=== PATIENT | male | born 1945 | race Caucasian/White ===

== ENCOUNTER → 2016-08-14 | Outpatient (CLI) | payer MEDICARE, OTHER | END | disposition home or self-care (01) | LOC: GMAL 10:50 | PROVIDERS: ATTEND Family Medicine | DX: D51.3 Other dietary vitamin B12 deficiency anemia (principal); E78.4 Other hyperlipidemia; Z12.5 Encounter for screening for malignant neoplasm of prostate; E55.9 Vitamin D deficiency, unspecified | CPT/HCPCS: 82306; 82607; G0103 ==

== ENCOUNTER → 2017-01-17 | Outpatient (CLI) | payer MEDICARE, OTHER ==
--- NOTE | 2017-01-18 09:04 | MRI ---
EXAM DESCRIPTION: Lumbar Spine w/o Contrast CLINICAL HISTORY: 71 years, Male, LOW BACK PAIN , right-sided pain COMPARISON: FINDINGS: Sagittal and axial sequences. Bone marrow signal within normal limits. Conus terminates at L1. L1-2, left lateral protrusion about 8 mm narrows the exit foramen. Possible minimal impression on the exiting left L1 root. At L2-3 diffuse bulging disc asymmetric to the right with facet degenerative change. Impingement on the exit foramen and probably right L2 root as well. Facet degenerative change. At L3-4 narrowing with diffuse bulging disc asymmetric to the left and facet degenerative change. Mild left foraminal narrowing and lateral recess encroachment At L4-5 slight narrowing with diffuse bulge asymmetric to the right. Impingement on the exiting right L4 root. L5-S1 shows tiny focal central and left-sided protrusion without significant stenosis. Mild facet degenerative change. IMPRESSION: 1. Multilevel disc disease as discussed above 2. Bulging disc L2-3 and L4-5 asymmetric to the right with probable impingement on the exiting right nerve roots at this level 3. Left lateral protrusion L1-2 with moderate left foraminal narrowing. Bulging disc osteophyte asymmetric to the left L3-4 with left foraminal narrowing and lateral recess encroachment Electronically signed by: Reg Lau MD 01/18/2017 9:03 AM CDT
== END | disposition home or self-care (01) ==
LOC: MRI 13:02
PROVIDERS: ATTEND Family Medicine
DX: M51.26 Other intervertebral disc displacement, lumbar region (principal)

== ENCOUNTER → 2017-02-19 | Outpatient (CLI) | payer MEDICARE, OTHER | END | disposition home or self-care (01) | LOC: GMAL 10:38 | PROVIDERS: ATTEND Family Medicine | DX: D51.3 Other dietary vitamin B12 deficiency anemia (principal); I10 Essential (primary) hypertension ==

== ENCOUNTER → 2017-08-27 | Outpatient (CLI) | payer MEDICARE, OTHER | LOC: GMAL 11:13 | PROVIDERS: ATTEND Family Medicine | DX: E55.9 Vitamin D deficiency, unspecified (principal); M10.9 Gout, unspecified; Z12.5 Encounter for screening for malignant neoplasm of prostate | CPT/HCPCS: 82306; 84550; G0103 ==

== ENCOUNTER → 2017-12-06 | Outpatient (CLI) | payer MEDICARE, OTHER | LOC: GMAL 10:43 | PROVIDERS: ATTEND Family Medicine | DX: M10.9 Gout, unspecified (principal) ==

== ENCOUNTER → 2018-03-20 | Outpatient (CLI) | payer MEDICARE, OTHER | LOC: GMAE 11:00 | PROVIDERS: ATTEND Family Medicine | DX: M10.9 Gout, unspecified (principal) ==

== ENCOUNTER → 2018-11-26 | Outpatient (CLI) | payer MEDICARE, OTHER | LOC: GMAL 10:54 | PROVIDERS: ATTEND Family Medicine | DX: D51.3 Other dietary vitamin B12 deficiency anemia (principal); E55.9 Vitamin D deficiency, unspecified; I10 Essential (primary) hypertension; E11.9 Type 2 diabetes mellitus without complications; E78.49 Other hyperlipidemia; M10.9 Gout, unspecified; Z12.5 Encounter for screening for malignant neoplasm of prostate | CPT/HCPCS: 82306; 82607; 84550; G0103 ==

== ENCOUNTER 2019-02-08 14:53 | Emergency (ER) | payer MEDICARE, OTHER ==
--- NOTE | 2019-02-08 15:55 | RAD ---
EXAM DESCRIPTION: Thumb,Left CLINICAL HISTORY: 73 years Male, skillsaw to tip of thumb COMPARISON: None. FINDINGS/IMPRESSION: Two views of the left thumb demonstrate soft tissue injury/laceration along the volar tip. No underlying radiopaque retained foreign body. No acute displaced fracture or dislocation. Scattered degenerative changes of the IP, MCP and thumb CMC joints. Electronically signed by: Darren Gutiérrez DO 02/08/2019 3:53 PM [facility]
[2019-02-08] MEDS ORDERED: TETANUS,DIPHTHERIA,PERTUSSIS 1 EA SYG IM ONE (15:56)
[2019-02-08] MEDS ORDERED: SULFA/TRIMETH 800/160 (DS) TAB 1 EA TAB PO ONE (15:56)
--- NOTE | 2019-02-08 15:59 | ED.PDOC ---
History of Present Illness - General Chief Complaint: Laceration Stated Complaint: Laceration L thumb Time Seen by Provider: 02/08/19 15:03 - History of Present Illness Initial Comments: The patient is a 73-year-old male from emergency room after having cut the tip of his leftthumb with a skill saw just immediately prior to arrival. Laceration is three quarters of an inch in length andgoes through the skin does not appear to touch the bone or tendon. It is largely hemostatic. No other injury. Timing/Duration: momentarily Severity: moderate Improving Factors: nothing Worsening Factors: nothing Associated Symptoms: denies symptoms Allergies/Adverse Reactions: Allergies NO KNOWN ALLERGY Allergy (Verified 06/26/12 10:18) Home Medications: Ambulatory Orders Aspirin [Aspir-81] 81 mg PO DAILY 06/26/12 Carvedilol [Coreg] 25 mg PO BID 06/26/12 Doxazosin Mesylate 4 mg PO DAILY 06/26/12 Furosemide Tab 40Mg (ER Disp) [Lasix] 10 mg PO DAILY 06/26/12 Glyburide 10 mg PO BID 06/26/12 Metformin HCl 1,000 mg PO BID 06/26/12 Rosuvastatin Calcium [Crestor] 10 mg PO DAILY 06/26/12 Canagliflozin [Invokana] 100 mg PO DAILY 10/17/15 Enalapril Maleate 10 mg PO BEDTIME 10/17/15 Olmesartan Medoxomil-Hydrochlo [Benicar Hct] 1 tab PO DAILY 10/17/15 Sulfa/Trimeth 800/160 (Ds) Tab [Bactrim DS Tab] 1 ea PO DAILY #3 tab 02/08/19 Review of Systems - Review of Systems Constitutional: States: no symptoms reported EENTM: States: no symptoms reported Respiratory: States: no symptoms reported Cardiology: States: no symptoms reported Gastrointestinal/Abdominal: States: no symptoms reported Genitourinary: States: no symptoms reported Musculoskeletal: States: no symptoms reported Skin: States: see HPI Neurological: States: no symptoms reported Endocrine: States: no symptoms reported All other Systems: No Change from Baseline Past Medical History (General) - Patient Medical History Hx Stroke: No Hx Cardiac Disorders: Yes - Hypercholesterolemia Hx Congestive Heart Failure: No Hx Hypertension: Yes Hx Diabetes: Yes Hx MRSA: No - Vaccination History Hx Tetanus, Diphtheria Vaccination: - 02/08/19 Hx Influenza Vaccination: Yes - 2019 Hx Pneumococcal Vaccination: No - Social History Hx Alcohol Use: Yes - Occasional use Family Medical History - Family History Father Family History: No Known Living Status: Age at (years of age): 89 Cause of : natural causes Physical Exam - Physical Exam General Appearance: Alert, Comfortable, No apparent distress Eye Exam: bilateral normal Ears, Nose, Throat: hearing grossly normal - chronically decreased bilaterally Respiratory: no respiratory distress, no accessory muscle use Cardiovascular/Chest: normal peripheral pulses, no edema Peripheral Pulses: radial,right: 2+, radial,left: 2+ Gastrointestinal/Abdominal: other - obese Rectal Exam: deferred Extremity: normal range of motion, no pedal edema, normal capillary refill, other - tendon functions of the hand appear to be intact. Neurologic: alert, normal mood/affect, oriented x 3 Skin Exam: normal color - laceration as per history of present illness. Comments: Vital Signs - 24 hr 02/08/19 15:00 Temperature 98.3 F Pulse Rate [ 108 H Left Radial] Respiratory 18 Rate Blood Pressure 119/81 [Left Arm] O2 Sat by Pulse 96 Oximetry Progress - Progress Progress: 02/08/19 15:59 the patient is a 73-year-old male presenting with a three-quarter inch laceration to the tip of his left thumb. X-ray fails to show any extension into the bone. After risks and benefits were explained the patient did agree to repair. wound is cleaned with hydrogen peroxide. Xylocaine 3 cc without epinephrine was used as local anesthetic. 3 simple sutures of 4-0 Ethilon were used for reapproximation after cleaning. Blood loss is minimal. He does appear to be grossly neurovascularly intact. No evidence of motor dysfunction. Sutures need come out in approximately 10 days. Keep covered with a Band-Aid and triple antibiotic ointment. He was given a tetanus shot and a dose of Bactrim here. He will be written for 3 more days of Bactrim daily prophylactically. ER warnings were given. adiel meza [id number] Departure - Departure Clinical Impression: Accidental laceration Disposition: Discharge to Home or Self Care Condition: Fair Departure Forms: ED Discharge - Pt. Copy, Patient Portal Self Enrollment Instructions: DI for Laceration Repair, DI for Laceration Repair -- Simple Diet: diabetic diet Activity: increase activity as tolerated Referrals: Arpit Clark III, MD [Primary Care Provider] - 1-2 Weeks Prescriptions: Sulfa/Trimeth 800/160 (Ds) Tab [Bactrim DS Tab] 1 ea PO DAILY #3 tab Home Medications: Ambulatory Orders Aspirin [Aspir-81] 81 mg PO DAILY 06/26/12 Carvedilol [Coreg] 25 mg PO BID 06/26/12 Doxazosin Mesylate 4 mg PO DAILY 06/26/12 Furosemide Tab 40Mg (ER Disp) [Lasix] 10 mg PO DAILY 06/26/12 Glyburide 10 mg PO BID 06/26/12 Metformin HCl 1,000 mg PO BID 06/26/12 Rosuvastatin Calcium [Crestor] 10 mg PO DAILY 06/26/12 Canagliflozin [Invokana] 100 mg PO DAILY 10/17/15 Enalapril Maleate 10 mg PO BEDTIME 10/17/15 Olmesartan Medoxomil-Hydrochlo [Benicar Hct] 1 tab PO DAILY 10/17/15 Sulfa/Trimeth 800/160 (Ds) Tab [Bactrim DS Tab] 1 ea PO DAILY #3 tab 02/08/19 Additional Instructions: the patient is a 73-year-old male presenting with a three-quarter inch laceration to the tip of his left thumb. X-ray fails to show any extension into the bone. wound is cleaned with hydrogen peroxide. Xylocaine 3 cc without epinephrine was used as local anesthetic. 3 simple sutures of 4-0 Ethilon were used for reapproximation after cleaning. Blood loss is minimal. He does appear to be grossly neurovascularly intact. No evidence of motor dysfunction. Sutures need come out in approximately 10 days. Keep covered with a Band-Aid and triple antibiotic ointment. He was given a tetanus shot and a dose of Bactrim here. He will be written for 3 more days of Bactrim daily prophylactically. ER warnings were given.
[2019-02-08 16:28] VITALS: TEMP 98.7; O2SAT 95
[2019-02-08 16:29] VITALS: BP 96/65
[2019-02-08] MEDS ORDERED: NEOMYCIN-BACITRACIN-POLYMYXIN 0.9 GM UD TOP ONE (16:31)
== END 2019-02-08 16:28 | disposition home or self-care (01) ==
LOC: ER 14:53
DX: S61.012A Laceration without foreign body of left thumb without damage to nail, initial encounter (principal); E78.00 Pure hypercholesterolemia, unspecified; E11.9 Type 2 diabetes mellitus without complications; I10 Essential (primary) hypertension; W31.2XXA Contact with powered woodworking and forming machines, initial encounter; Y92.9 Unspecified place or not applicable; Z79.82 Long term (current) use of aspirin; Z79.84 Long term (current) use of oral hypoglycemic drugs; Z79.899 Other long term (current) drug therapy

== ENCOUNTER → 2019-04-03 | Outpatient (CLI) | payer MEDICARE, OTHER ==
--- NOTE | 2019-04-03 09:03 | MRI ---
EXAM DESCRIPTION: Lumbar Spine w/o Contrast CLINICAL HISTORY: 73 years Male, RADICULOPATY COMPARISON: MRI of the lumbar spine dated 01/17/2017. TECHNIQUE: Multiplanar multiecho imaging of the lumbar spine was performed without intravenous contrast administration. FINDINGS: The vertebral body heights are well-maintained with no acute compression deformity. Multilevel intervertebral disc space narrowing is noted. The conus medullaris terminates at T12-L1 intervertebral disc space. The visualized spinal cord demonstrates no signal abnormality. L1-L2: Bilateral facet arthropathy. No canal stenosis. Mild bilateral neural foraminal narrowing. L2-L3: 3 mm diffuse disc bulge and bilateral facet arthropathy with no central canal stenosis. Mild bilateral neural foraminal narrowing is noted. L3-L4: 2 mm diffuse disc bulge, ligamentum flavum hypertrophy and facet arthropathy with no central canal stenosis. Moderate to severe bilateral neural foraminal narrowing is noted secondary to facet arthropathy. L4-L5: No significant central canal stenosis. Moderate bilateral neural foraminal narrowing secondary to facet arthropathy. L5-S1: No significant central canal stenosis. Moderate bilateral neural foraminal narrowing secondary to facet arthropathy. The visualized prevertebral and paravertebral soft tissues appear unremarkable. IMPRESSION: Multilevel degenerative disc disease and facet arthropathy throughout the lumbar spine with changes worse at L3-L4 level as described above. Electronically signed by: Adolfo Winter MD 04/03/2019 9:01 AM [facility]
== END ==
LOC: MRI 08:00
PROVIDERS: ATTEND Family Medicine
DX: M51.16 Intervertebral disc disorders with radiculopathy, lumbar region (principal); M12.88 Other specific arthropathies, not elsewhere classified, other specified site

== ENCOUNTER 2019-11-22 14:27 | Emergency (ER) | payer MEDICARE, OTHER ==
--- NOTE | 2019-11-22 14:37 | ED.PDOC ---
History of Present Illness - General Time Seen by Provider: 11/22/19 14:31 - History of Present Illness Initial Comments: 74 yo male with a PMH DM, HTN comes in with 1 days of not feeling well. complains of elevated glucose over 300. Yesterday patient got Pain radiating between shoulder blades when at a garage sale. the pain lasted a few minutes and went away. denies any injury. no abdominal pain n/v/d. Is dizzy but no syncope. Father had hx of cabg. no chest pain. Today pain radiating down bilateral arms. no pain up jaw. no midline cervical pain. no shortness of breath,or blurry vision. no headache. no focal weakness or numbness. no headaches or changes in visin. Dizziness is worse with standing. no room spinning sensation. no current back pain Allergies/Adverse Reactions: Allergies NO KNOWN ALLERGY Allergy (Verified 11/22/19 14:43) Home Medications: Ambulatory Orders Carvedilol [Coreg] 25 mg PO BID 06/26/12 Doxazosin Mesylate 4 mg PO DAILY 06/26/12 Furosemide Tab 40Mg (ER Disp) [Lasix] 20 mg PO DAILY 06/26/12 Metformin HCl 1,000 mg PO BID 06/26/12 Enalapril Maleate 10 mg PO BID 10/17/15 Allopurinol [Zyloprim] 100 mg PO DAILY 11/22/19 Atorvastatin Calcium 20 mg PO DAILY 11/22/19 Dulaglutide [Trulicity] 1.5 mg SC WKLY 11/22/19 Empagliflozin [Jardiance] 25 mg PO DAILY 11/22/19 Glimepiride 4 mg PO BID 11/22/19 Loratadine 10 mg PO DAILY 11/22/19 Olmesartan Medoxomil-Hydrochlo [Benicar Hct 40-25 mg] 1 tab PO DAILY 11/22/19 Omeprazole 20 mg PO DAILY 11/22/19 SITagliptin [Januvia] 50 mg PO DAILY #21 tab 11/22/19 Review of Systems - Review of Systems Constitutional: Denies: fever, malaise EENTM: Denies: blurred vision, double vision, ear discharge, nose congestion, throat pain, mouth pain Respiratory: Denies: cough, orthopnea, short of breath, stridor Cardiology: Denies: edema, palpitations, syncope Gastrointestinal/Abdominal: Denies: abdominal pain, constipation, diarrhea, nausea Genitourinary: Denies: discharge, dysuria, frequency, hematuria Musculoskeletal: States: back pain. Denies: joint pain, joint swelling, muscle pain Skin: Denies: change in color, dryness, rash Neurological: Denies: headache, numbness, paresthesia, seizure, tingling, tremors, weakness Endocrine: Denies: increased hunger, increased thirst, increased urine, unexplained weight gain, unexplained weight loss Hematologic/Lymphatic: Denies: anemia, blood clots, easy bleeding, easy bruising Past Medical History (General) - Patient Medical History Hx Stroke: No Hx Cardiac Disorders: Yes - Hypercholesterolemia Hx Congestive Heart Failure: No Hx Hypertension: Yes Hx Diabetes: Yes Hx MRSA: No - Vaccination History Hx Tetanus, Diphtheria Vaccination: - 02/08/19 Hx Influenza Vaccination: Yes - 2019 Hx Pneumococcal Vaccination: No - Social History Hx Alcohol Use: Yes - Occasional use Family Medical History - Family History Father Family History: No Known Living Status: Age at (years of age): 89 Cause of : natural causes Physical Exam - Physical Exam General Appearance: Alert, Comfortable, No apparent distress Eye Exam: bilateral normal Ears, Nose, Throat: hearing grossly normal, normal ENT inspection Neck: non-tender, full range of motion, supple, normal inspection, other - no midlines tenderness or step offs. Respiratory: chest non-tender, lungs clear, normal breath sounds, no respiratory distress, no accessory muscle use Cardiovascular/Chest: normal peripheral pulses, regular rate, rhythm, no edema, no gallop, no JVD, no murmur Peripheral Pulses: radial,right: 2+, radial,left: 2+, dorsalis pedis,right: 2+, dorsalis pedis,left: 2+ Gastrointestinal/Abdominal: normal bowel sounds, non tender, soft, no organomegaly, no pulsatile mass Rectal Exam: deferred Back Exam: normal inspection, no CVA tenderness, no vertebral tenderness Extremity: normal range of motion, non-tender, normal inspection, no pedal edema, no calf tenderness, normal capillary refill Neurologic: calender wind up helper II-XII nml as tested, no motor/sensory deficits, alert, normal mood/affect, oriented x 3, other - 5/5 muscle strength angela sym DTR: 2+: Biceps, left, Biceps, right, Triceps, left, Triceps, right, Brachioradialis, left, Brachioradialis, right Skin Exam: normal color, warm/dry Progress - Progress Progress: 11/22/19 patients orthostatics positive. will give 1 L NS Bolus. no evidence of heart failure. Reviewed blood work with patient and . GFR 44. FeNA 1.2%. most likely acute on chronic. CXR shows no acute pathology. EKG shows HR 91, nonspecific ST changes, no evidence of stemi. Dizziness resolved with fluid. bp 119. BP at home runs 110-120. Recommended CTA chest for sharp back pain, discussed risk of contrast induced nephropathy, patients opt out of CTA, will get CT chest without. Laboratory Results WBC 7.7 K/mm3 (4.8-10.8) 11/22/19 14:40 RBC 5.23 M/mm3 (4.70-6.10) 11/22/19 14:40 Hgb 14.7 gm/dL (14.0-18.0) 11/22/19 14:40 Hct 42.6 % (42.0-52.0) 11/22/19 14:40 MCV 81.4 fl (80.0-94.0) 11/22/19 14:40 MCH 28.0 pg (27.0-31.0) 11/22/19 14:40 MCHC 34.4 g/dL (33.0-37.0) 11/22/19 14:40 RDW 13.9 % (11.5-14.5) 11/22/19 14:40 Plt Count 222 K/mm3 (130-400) 11/22/19 14:40 MPV 7.9 fl (7.40-10.4) 11/22/19 14:40 Absolute Neuts (auto) 5.40 K/uL (1.8-6.8) 11/22/19 14:40 Absolute Lymphs (auto) 1.40 K/uL (1.0-3.4) 11/22/19 14:40 Absolute Monos (auto) 0.60 K/uL (0.2-0.8) 11/22/19 14:40 Absolute Eos (auto) 0.10 K/uL (0.0-0.4) 11/22/19 14:40 Absolute Basos (auto) 0.10 K/uL (0.0-0.1) 11/22/19 14:40 Neutrophils % 70.6 % (42.0-78.0) 11/22/19 14:40 Lymphocytes % 18.1 % (20.0-50.0) L 11/22/19 14:40 Monocytes % 8.5 % (2.0-9.0) 11/22/19 14:40 Eosinophils % 1.5 % (1.0-5.0) 11/22/19 14:40 Basophils % 1.3 % (0.0-2.0) 11/22/19 14:40 PT 9.9 SECONDS (9.0-10.9) 11/22/19 14:40 INR 1.00 (0.9-1.15) 11/22/19 14:40 PTT (SP) 22.5 SECONDS (21.8-31.6) 11/22/19 14:40 Sodium 133 mmol/L (135-145) L 11/22/19 14:40 Potassium 3.6 mmol/L (3.6-5.0) 11/22/19 14:40 Chloride 97 mmol/L (101-111) L 11/22/19 14:40 Carbon Dioxide 23 mmol/L (21-31) 11/22/19 14:40 Anion Gap 16.6 (12-18) 11/22/19 14:40 BUN 37 mg/dL (7-18) H 11/22/19 14:40 Creatinine 1.53 mg/dL (0.6-1.3) H 11/22/19 14:40 BUN/Creatinine Ratio 24.2 (10-20) H 11/22/19 14:40 POC Glucose 146 mg/dL (70-105) H D 11/22/19 16:51 Random Glucose 248 mg/dL (70-105) H 11/22/19 14:40 Serum Osmolality 283.4 mOsm/L (275-295) 11/22/19 14:40 Lactic Acid 2.5 mmol/L (0.5-2.2) H* 11/22/19 16:55 Calcium 9.1 mg/dL (8.4-10.2) 11/22/19 14:40 Phosphorus 3.7 mg/dL (2.5-4.6) 11/22/19 14:40 Magnesium 1.8 mg/dL (1.8-2.5) 11/22/19 14:40 Total Bilirubin 0.7 mg/dL (0.2-1.0) 11/22/19 14:40 AST 28 IU/L (10-42) 11/22/19 14:40 ALT 28 IU/L (10-60) 11/22/19 14:40 Alkaline Phosphatase 55 IU/L (42-121) 11/22/19 14:40 Creatine Kinase 53 IU/L (38-174) 11/22/19 14:40 Troponin I < 0.02 ng/mL (0.01-0.05) 11/22/19 14:40 B-Natriuretic Peptide < 15.0 pg/ml (0-100) 11/22/19 14:40 Serum Total Protein 7.1 gm/dL (6.4-8.2) 11/22/19 14:40 Albumin 3.9 g/dl (3.2-5.5) 11/22/19 14:40 Globulin 3.2 gm/dL (2.3-3.5) 11/22/19 14:40 Albumin/Globulin Ratio 1.2 (1.1-1.9) 11/22/19 14:40 Lipase 75 U/L (22-51) H 11/22/19 14:40 Urine Color Yellow (Yellow) 11/22/19 15:19 Urine Appearance Clear (Clear) 11/22/19 15:19 Urine pH 5.0 (4.5-7.8) 11/22/19 15:19 Ur Specific [place] 1.010 (1.005-1.030) 11/22/19 15:19 Urine Protein Negative mg/dL 11/22/19 15:19 Urine Glucose (UA) 500 mg/dL (Negative) H 11/22/19 15:19 Urine Ketones Negative mg/dL (NEGATIVE) 11/22/19 15:19 Urine Blood Trace-intact (Negative) H 11/22/19 15:19 Urine Nitrite Negative 11/22/19 15:19 Urine Bilirubin Negative (NEGATIVE) 11/22/19 15:19 Urine Urobilinogen 0.2 mg/dL (0.2-1.0) 11/22/19 15:19 Ur Leukocyte Esterase Negative (Negative) 11/22/19 15:19 Urine RBC 0 /hpf 11/22/19 15:19 Urine WBC 0 /hpf 11/22/19 15:19 Ur Epithelial Cells 0 /hpf 11/22/19 15:19 Urine Bacteria 0 11/22/19 15:19 Ur Random Sodium 48 mmol/L 11/22/19 15:13 Urine Creatinine 46.26 mg/dL 11/22/19 15:13 Serum Ketones Negative 11/22/19 14:40 CT chest shows: 1. Small area of groundglass and tree-in-bud opacities in the left upper lobe suspicious for infection in the appropriate clinical setting. 2. Dense atherosclerotic calcification of the coronary arteries. 3. A 3 mm left lower lobe pulmonary nodule. No routine follow-up imaging is recommended. 4. Multiple layering gallstones. discussed these findings with patient. patient has no resp symptoms. I do not feel that he has a pneumonia at this time. Discussed blood work with patient, no evidence of sepsis. I feel that he may cash ve increase lactic acid from metformin. Repeat glucose 146. I discussed holding off on metformin until follow up with pcp. They are going to call for a follow up tomorrow. The data reviewed when caring for this patient included: nurse notes, prior records, etc. The history and assessments from nurses notes were reviewed and considered, and the patient's home medication list was also reviewed and considered. My assessment and the results of testing completed here in the ED were discussed with the patient/family. All questions were answered, and they express understanding of my assessment and the plan. They have been instructed to return if their symptoms worsen, and have been asked to follow up with their primary care physician to recheck today's presenting complaint. Strict return p recautions given. and patient acknowledge understanding. I have reviewed medication, benefits, alternatives and side effects. Patient decided to proceed with medication. patient was discharged home in stable condition. Meeta Figueroa DO #[id number] Departure - Departure Clinical Impression: Dehydration Hyperglycemia due to type 2 diabetes mellitus Qualifiers: Diabetes mellitus fpc insulin use: without motor vehicle parts interpreter use Qualified Code(s): E11.65 - Type 2 diabetes mellitus with hyperglycemia Time of Disposition: 17:23 Disposition: Discharge to Home or Self Care Departure Forms: ED Discharge - Pt. Copy, Patient Portal Self Enrollment Instructions: Dehydration, Adult (DC), Lactic Acid Blood Test, Why Water Is Important to Health Diet: other - low carb diet Referrals: Arpit Clark III, MD [Primary Care Provider] - 1-2 Days Prescriptions: SITagliptin [Januvia] 50 mg PO DAILY #21 tab Home Medications: Ambulatory Orders Carvedilol [Coreg] 25 mg PO BID 06/26/12 Doxazosin Mesylate 4 mg PO DAILY 06/26/12 Furosemide Tab 40Mg (ER Disp) [Lasix] 20 mg PO DAILY 06/26/12 Metformin HCl 1,000 mg PO BID 06/26/12 Enalapril Maleate 10 mg PO BID 10/17/15 Allopurinol [Zyloprim] 100 mg PO DAILY 11/22/19 Atorvastatin Calcium 20 mg PO DAILY 11/22/19 Dulaglutide [Trulicity] 1.5 mg SC WKLY 11/22/19 Empagliflozin [Jardiance] 25 mg PO DAILY 11/22/19 Glimepiride 4 mg PO BID 11/22/19 Loratadine 10 mg PO DAILY 11/22/19 Olmesartan Medoxomil-Hydrochlo [Benicar Hct 40-25 mg] 1 tab PO DAILY 11/22/19 Omeprazole 20 mg PO DAILY 11/22/19 SITagliptin [Januvia] 50 mg PO DAILY #21 tab 11/22/19 Additional Instructions: due to elevated lactic acid I recommend you stop metformin. Will start Januvia in place of metformin. Call doctor in AM for follow up.
--- NOTE | 2019-11-22 15:04 | RAD ---
EXAM: XR Chest, 1 View CLINICAL HISTORY: pain in back, chest TECHNIQUE: Frontal view of the chest. COMPARISON: 02/26/2008. FINDINGS: Lungs: Unremarkable. No consolidation. Pleural space: Unremarkable. No pneumothorax. Heart: Stable is enlarged cardiac shadow. Mediastinum: Unremarkable. Bones/joints: Unremarkable. IMPRESSION: No abnormality noted. Electronically signed by: Sinai Huynh MD 11/22/2019 3:02 PM CDT
[2019-11-22 15:05] VITALS: O2SAT 95
[2019-11-22] MEDS ORDERED: SODIUM CHLORIDE 0.9% 1000ML 1,000 ML IVS PRN (15:31)
[2019-11-22] MEDS ORDERED: MAGNESIUM OXIDE 400 MG TAB PO ONE (16:28)
--- NOTE | 2019-11-22 16:37 | CT ---
EXAM DESCRIPTION: Chest w/o Contrast CLINICAL HISTORY: 74 years Male pain btw shoulder blades, pt declines cta TECHNIQUE: Axial scans of the chest was performed without intravenous contrast administration. This exam was performed according to our departmental dose-optimization program, which includes automated exposure control, adjustment of the mA and/or kV according to patient size and/or use of iterative reconstruction technique. COMPARISON: Chest radiograph November 22, 2019. FINDINGS: Small area of groundglass and tree-in-bud opacities in the left upper lobe. A 3 mm left lower lobe pulmonary nodule. No pneumothorax or pleural effusion. Airway is patent. Dense atherosclerotic calcification of the coronary arteries. No cardiomegaly or pericardial effusion. No mediastinal or hilar mass or adenopathy. Aorta is normal in caliber. Multiple layering gallstones. Multilevel degenerative changes. Soft tissues are unremarkable. IMPRESSION: 1. Small area of groundglass and tree-in-bud opacities in the left upper lobe suspicious for infection in the appropriate clinical setting. 2. Dense atherosclerotic calcification of the coronary arteries. 3. A 3 mm left lower lobe pulmonary nodule. No routine follow-up imaging is recommended. 4. Multiple layering gallstones. Electronically signed by: Pj Echevarria MD 11/22/2019 4:36 PM CDT
[2019-11-22 17:43] VITALS: BP 150/90; TEMP 98.3
== END 2019-11-22 17:43 | disposition home or self-care (01) ==
LOC: ER 14:27
DX: E86.0 Dehydration (principal); E11.65 Type 2 diabetes mellitus with hyperglycemia; M54.6 Pain in thoracic spine; I10 Essential (primary) hypertension; E78.00 Pure hypercholesterolemia, unspecified; Z79.84 Long term (current) use of oral hypoglycemic drugs; Z79.899 Other long term (current) drug therapy
CPT/HCPCS: 36415; 36416; 71045; 71250; 80053; 81001; 82009; 82550; 82948; 83605; 83690; 83735; 83880; 84100; 84300; 84484; 85025; 85610; 85730; 93005; J7030

== ENCOUNTER 2019-11-22 22:02 | Emergency (ER) | payer MEDICARE, OTHER ==
--- NOTE | 2019-11-22 22:03 | ED.PDOC ---
History of Present Illness - General Time Seen by Provider: 11/22/19 22:02 - History of Present Illness Initial Comments: 74 yo male was here 4 hours prior for elevated sugar, and generalized malaise. Was found to have a blood glucose at 250 when he went home, rechecked it again and it was 286 so he decided to come back. dizziness resolved. no headache, chest pain, shortness of breath. Allergies/Adverse Reactions: Allergies NO KNOWN ALLERGY Allergy (Verified 11/22/19 14:43) Home Medications: Ambulatory Orders Carvedilol [Coreg] 25 mg PO BID 06/26/12 Doxazosin Mesylate 4 mg PO DAILY 06/26/12 Furosemide Tab 40Mg (ER Disp) [Lasix] 20 mg PO DAILY 06/26/12 Metformin HCl 1,000 mg PO BID 06/26/12 Enalapril Maleate 10 mg PO BID 10/17/15 Allopurinol [Zyloprim] 100 mg PO DAILY 11/22/19 Atorvastatin Calcium 20 mg PO DAILY 11/22/19 Dulaglutide [Trulicity] 1.5 mg SC WKLY 11/22/19 Empagliflozin [Jardiance] 25 mg PO DAILY 11/22/19 Glimepiride 4 mg PO BID 11/22/19 Loratadine 10 mg PO DAILY 11/22/19 Olmesartan Medoxomil-Hydrochlo [Benicar Hct 40-25 mg] 1 tab PO DAILY 11/22/19 Omeprazole 20 mg PO DAILY 11/22/19 SITagliptin [Januvia] 50 mg PO DAILY #21 tab 11/22/19 Past Medical History (General) - Patient Medical History Hx Seizures: No Hx Stroke: No Hx Dementia: No Hx Asthma: No Hx of COPD: No Hx Cardiac Disorders: Yes - Hypercholesterolemia Hx Congestive Heart Failure: No Hx Pacemaker: No Hx Hypertension: Yes Hx Thyroid Disease: No Hx Diabetes: Yes Hx Gastroesophageal Reflux: No Hx Renal Disease: No Hx Cancer: No Hx of HIV: No Hx Hepatitis C: No Hx MRSA: No - Vaccination History Hx Tetanus, Diphtheria Vaccination: - 02/08/19 Hx Influenza Vaccination: Yes - 2019 Hx Pneumococcal Vaccination: No - Social History Hx Tobacco Use: No Hx Alcohol Use: Yes - Occasional use Family Medical History - Family History Father Family History: No Known Living Status: Age at (years of age): 89 Cause of : natural causes Physical Exam - Physical Exam General Appearance: Alert, Comfortable, No apparent distress Eye Exam: bilateral normal Ears, Nose, Throat: hearing grossly normal Neck: non-tender, full range of motion, supple Respiratory: chest non-tender, lungs clear, normal breath sounds, no respiratory distress, no accessory muscle use Cardiovascular/Chest: normal peripheral pulses, regular rate, rhythm, no edema, no gallop, no JVD, no murmur Peripheral Pulses: radial,right: 2+, radial,left: 2+ Gastrointestinal/Abdominal: normal bowel sounds, non tender, soft, no organomegaly, no pulsatile mass Back Exam: normal inspection Extremity: normal range of motion, non-tender, normal capillary refill 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 Patient discharged home in stable condition. 11/22/19 23:23 Departure - Departure Clinical Impression: Diabetes mellitus Qualifiers: Diabetes mellitus type: type 2 Diabetes mellitus mcc insulin use: without intermodal customer service use Diabetes mellitus complication status: without complication Qualified Code(s): E11.9 - Type 2 diabetes mellitus without complications Time of Disposition: 23:17 Disposition: Discharge to Home or Self Care Instructions: Hyperglycemia, Adult, How to Prevent High Blood Sugar Emergencies in Diabetes Referrals: Arpit Clark III, MD [Primary Care Provider] - 1-2 Days Home Medications: Ambulatory Orders Carvedilol [Coreg] 25 mg PO BID 06/26/12 Doxazosin Mesylate 4 mg PO DAILY 06/26/12 Furosemide Tab 40Mg (ER Disp) [Lasix] 20 mg PO DAILY 06/26/12 Metformin HCl 1,000 mg PO BID 06/26/12 Enalapril Maleate 10 mg PO BID 10/17/15 Allopurinol [Zyloprim] 100 mg PO DAILY 11/22/19 Atorvastatin Calcium 20 mg PO DAILY 11/22/19 Dulaglutide [Trulicity] 1.5 mg SC WKLY 11/22/19 Empagliflozin [Jardiance] 25 mg PO DAILY 11/22/19 Glimepiride 4 mg PO BID 11/22/19 Loratadine 10 mg PO DAILY 11/22/19 Olmesartan Medoxomil-Hydrochlo [Benicar Hct 40-25 mg] 1 tab PO DAILY 11/22/19 Omeprazole 20 mg PO DAILY 11/22/19 SITagliptin [Januvia] 50 mg PO DAILY #21 tab 11/22/19
[2019-11-22 22:40] VITALS: TEMP 97.6
[2019-11-22] MEDS ORDERED: INSULIN DETEMIR 100 UNITS/ML PEN SUBCU ONE (23:01)
[2019-11-22 23:23] VITALS: BP 141/81; O2SAT 96
== END 2019-11-22 23:30 | disposition home or self-care (01) ==
LOC: ER 22:02
DX: E11.9 Type 2 diabetes mellitus without complications (principal); R53.1 Weakness; I10 Essential (primary) hypertension; E78.00 Pure hypercholesterolemia, unspecified; Z79.84 Long term (current) use of oral hypoglycemic drugs; Z79.899 Other long term (current) drug therapy
CPT/HCPCS: 82948; 83605; 84484; J1815

== ENCOUNTER → 2019-12-09 | Outpatient (CLI) | payer MEDICARE, OTHER | LOC: GMAL 10:32 | PROVIDERS: ATTEND Family Medicine | DX: D51.3 Other dietary vitamin B12 deficiency anemia (principal); Z12.5 Encounter for screening for malignant neoplasm of prostate; R53.83 Other fatigue; E55.9 Vitamin D deficiency, unspecified; Z79.899 Other long term (current) drug therapy; E78.49 Other hyperlipidemia; E11.9 Type 2 diabetes mellitus without complications | CPT/HCPCS: 82607; 84443; G0103 ==

== ENCOUNTER → 2020-03-17 | Outpatient (CLI) | payer MEDICARE, OTHER | LOC: GMAL 10:36 | PROVIDERS: ATTEND Family Medicine | DX: D51.3 Other dietary vitamin B12 deficiency anemia (principal); I10 Essential (primary) hypertension; E11.9 Type 2 diabetes mellitus without complications; E78.49 Other hyperlipidemia ==